=== PATIENT | female | born 1965 | race Hispanic/Latino ===

== ENCOUNTER 2018-09-10 11:56 | Emergency (ER) | payer SELFPAY ==
--- OUTSIDE RECORDS SUMMARY | 2018-09-10 12:00 | XMS REPORT | Summary of Care ---
Author Author [facility] Organization [facility] Address Unknown Phone Unavailable Encounter REMI Zayas(KENDELL) [phone] Date(s): 01/01/17 - 01/02/17 [facility] [address] [place] [address]- Discharge Diagnosis: Shoulder pain Discharge Disposition: Home or Self Care Attending Physician: Alice Abreu DO Vital Signs 1 2 3 Most recent to oldest [Reference Range]: 154.94 cm (01/01/17 11:37 PM) Height 97.7 DegF (01/02/17 4:40 AM) 98.0 DegF (01/02/17 3:20 AM) Temperature Oral [96.4-99.1 DegF] 105/53 mmHg (01/02/17 4:40 AM) 112/97 mmHg (01/02/17 3:20 AM) 145/78 mmHg *HI* (01/01/17 11:37 PM) Blood Pressure [90-140/60-90 mmHg] 16 BRMIN (01/02/17 4:40 AM) 20 BRMIN (01/02/17 3:20 AM) 20 BRMIN (01/01/17 11:37 PM) Respiratory Rate [14-20 BRMIN] 64 bpm (01/02/17 4:40 AM) 68 bpm (01/02/17 3:20 AM) 71 bpm (01/01/17 11:37 PM) Peripheral Pulse Rate [60-100 bpm] 86.364 kg (01/01/17 11:37 PM) Weight 35.98 m2 (01/01/17 11:37 PM) Body Mass Index Problem List No data available for this section Allergies, Adverse Reactions, Alerts Substance Reaction Severity Status acetaminophen-codeine Active NKA Active Medications acetaminophen-hydrocodone 325 mg-5 mg oral tablet 1 tab, Route: PO, Drug Form: TAB, Dosing Weight 86.364, kg, ONCE, STAT, Start da te: 01/02/17 2:14:00 CDT, Stop date: 01/02/17 2:14:00 CDT Start Date: 01/02/17 Stop Date: 01/02/17 Status: Completed ketOROLAC 30 mg, Route: IM, Drug form: INJ, ONCE, Dosing Weight 86.364, kg, Priority: STAT , Start date: 01/02/17 2:38:00 CDT, Stop date: 01/02/17 2:38:00 CDT Start Date: 01/02/17 Stop Date: 01/02/17 Status: Completed Motrin 600 mg oral tablet 600 mg=1 tab, PO, Q6H, take with food, X 5 day, # 20 tab, 0 Refill(s) Start Date: 01/02/17 Stop Date: 01/07/17 Status: Ordered Ultram 50 mg oral tablet 50 mg, Route: PO, Drug form: TAB, ONCE, Dosing Weight 86.364, kg, Priority: STAT , Start date: 01/02/17 2:38:00 CDT, Stop date: 01/02/17 2:38:00 CDT Start Date: 01/02/17 Stop Date: 01/02/17 Status: Completed Ultram 50 mg oral tablet 50 mg=1 tab, PO, Q6H, PRN pain, X 3 day, # 12 tab, 0 Refill(s) Start Date: 01/02/17 Stop Date: 01/05/17 Status: Ordered Valium 5 mg, Route: PO, ONCE, Dosing Weight 86.364, kg, Priority: STAT, Start date: 2:38:00 CDT, Stop date: 01/02/17 2:38:00 CDT Start Date: 01/02/17 Stop Date: 01/02/17 Status: Completed Valium 5 mg oral tablet 5 mg=1 tab, PO, Q6H, PRN Muscle Spasms, X 3 day, # 12 tab, 0 Refill(s) Start Date: 01/02/17 Stop Date: 01/05/17 Status: Ordered Results No data available for this section Immunizations No data available for this section Procedures No data available for this section Social History Social History Type Response Smoking Status Never smoker; Exposure to Tobacco Smoke None; Cigarette Smoking Last 365 Days No; Reg Smoking Cessation Counseling No Assessment and Plan No data available for this section
--- OUTSIDE RECORDS SUMMARY | 2018-09-10 12:00 | XMS REPORT | Continuity of Care Document ---
Author Author [facility] Interface Address Unknown Phone Unavailable Problems Problem Status Onset Date Classification Date Reported Comments Source HEADACHE Active 08/29/2018 [facility] APHASIA, RIGHT SIDED WEAKNESS Active 08/29/2018 [facility] Discharge Diagnosis: Shoulder pain 01/02/2017 01/05/2017 [facility] SHOULDER PAIN Active 01/01/2017 [facility] Discharge Diagnosis: Cervical paraspinal muscle spasm 10/10/2016 10/13/2016 [facility] LEFT SIDE PAIN Active 06/29/2014 [facility] APHASIA Active [facility] WEAKNESS Active [facility] Medications Medication Details Route Status Patient Instructions Ordering Provider Order Date Source Lipitor 20 mg, 2 tab, Route: PO, Drug form: TAB, Dinner, Dosing Weight 86.364, kg, Start date: 08/29/18 17:00:00 [employer], Duration: 30 day, Stop date: 09/27/18 17:00:00 CDTNotes: (Same As: Lipitor) Inactive 08/29/2018 [facility] atorvastatin 10 mg oral tablet 20 mg=2 tab, PO, Dinner, # 60 tab, 0 Refill(s), Pharmacy: [facility] [id number] Active 08/29/2018 [facility] Aspirin 325 MG Oral Tablet 325 mg=1 tab, PO, Daily, # 30 tab, 0 Refill(s), Pharmacy: [facility] [id number] Active 08/29/2018 [facility] Aspirin 325 MG Oral Tablet 325 mg, 1 tab, Route: PO, Drug form: TAB, Daily, Dosing Weight 86.364, kg, Start date: 08/29/18 10:30:00 [employer]ER TESTING [employer]PER[employer]OR, Duration: 30 day, Stop date: 09/28/18 9:00:00 CDTNotes: Take with food. 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, Duration: 30 day, Stop date: 09/27/18 21:00:00 CDTNotes: (Same as: BD Posiflush) Inactive 08/29/2018 [facility] Saline Flush 0.9% 10 ml, Route: IVP, Drug Form: INJ, Dosing Weight 81.818, kg, PRN, PRN Line Flush, Start date: 08/29/18 5:07:00 [employer]ER TESTING SUPER[employer]OR, Duration: 30 day, Stop date: 09/28/18 6:06:00 CDTNotes: (Same as: BD Posiflush) Inactive 08/29/2018 [facility] Aspirin 325 mg, Route: PO, Drug form: TAB, ONCE, Dosing Weight 81.818, kg, Priority: STAT, Start date: 08/29/18 2:34:00 PAPER TESTING SUPERVISOR, Stop date: 08/29/18 2:34:00 [employer]ER TESTING SUPER[employer]OR Inactive 08/29/2018 [facility] Saline Flush 0.9% 10 mL, Route: IVP, Drug Form: INJ, Dosing Weight 86.364, kg, PRN, PRN Line Flush, Start date: 08/29/18 1:28:00 P[employer]ER TESTING SUPERVISOR, Duration: 30 day, Stop date: 09/28/18 2:27:00 CDTNotes: (Same as: BD Posiflush) Inactive 08/29/2018 [facility] Motrin 600 mg oral tablet 600 mg=1 tab, PO, Q6H, take with food, X 5 day, # 20 tab, 0 Refill(s) Active 01/02/2017 [facility] Diazepam 5 MG Oral Tablet [Valium] 5 mg=1 tab, PO, Q6H, PRN Muscle Spasms, X 3 day, # 12 tab, 0 Refill(s) Active 01/02/2017 [facility] tramadol hydrochloride 50 MG Oral Tablet [Ultram] 50 mg=1 tab, PO, Q6H, PRN pain, X 3 day, # 12 tab, 0 Refill(s) Active 01/02/2017 [facility] Valium 5 mg, Route: PO, ONCE, Dosing Weight 86.364, kg, Priority: STAT, Start date: 01/02/17 2:38:00 CDT, Stop date: 01/02/17 2:38:00 CDT Inactive 01/02/2017 [facility] tramadol hydrochloride 50 MG Oral Tablet [Ultram] 50 mg, Route: PO, Drug form: TAB, ONCE, Dosing Weight 86.364, kg, Priority: STAT, Start date: 01/02/17 2:38:00 CDT, Stop date: 01/02/17 2:38:00 CDT Inactive 01/02/2017 [facility] Ketorolac 30 mg, Route: IM, Drug form: INJ, ONCE, Dosing Weight 86.364, kg, Priority: STAT, Start date: 01/02/17 2:38:00 CDT, Stop date: 01/02/17 2:38:00 CDT Inactive 01/02/2017 [facility] Acetaminophen 325 MG / Hydrocodone Bitartrate 5 MG Oral Tablet 1 tab, Route: PO, Drug Form: TAB, Dosing Weight 86.364, kg, ONCE, STAT, Start date: 01/02/17 2:14:00 CDT, Stop date: 01/02/17 2:14:00 CDT Inactive 01/02/2017 [facility] Ketorolac 30 mg, Route: IM, Drug form: INJ, ONCE, Dosing Weight 86.364, kg, Priority: STAT, Start date: 10/10/16 0:41:00 CDT, Stop date: 10/10/16 0:41:00 CDT Inactive 10/10/2016 [facility] Valium 5 mg, Route: IM, Drug form: INJ, ONCE, Dosing Weight 86.364, kg, Priority: STAT, Start date: 10/10/16 0:41:00 CDT, Stop date: 10/10/16 0:41:00 CDT Inactive 10/10/2016 [facility] Allergies, Adverse Reactions, Alerts Substance Category Reaction Severity Reaction type Status Date Reported Comments Source acetaminophen-codeine Assertion Drug allergy Active [facility] NKA Assertion Drug allergy Active [facility] Immunizations Immunization Date Given Site Status Last Updated Comments Source Results Order Name Results Value Reference Range Date Interpretation Comments Source ELECTROLYTES AGAP 8.0 meq/L 10.0 - 20.0 08/29/2018 [facility] ELECTROLYTES Potassium Lvl 4.0 meq/L 3.5 - 5.1 08/29/2018 [facility] ELECTROLYTES Chloride Lvl 108 meq/L 95 - 109 08/29/2018 [facility] ELECTROLYTES Creatinine Lvl 0.64 mg/dL 0.50 - 1.40 08/29/2018 [facility] ELECTROLYTES Sodium Lvl 139 meq/L 135 - 145 08/29/2018 [facility] ELECTROLYTES BUN 14 mg/dL 7 - 22 08/29/2018 [facility] ELECTROLYTES CO2 27 meq/L 24 - 32 08/29/2018 [facility] ELECTROLYTES Calcium Lvl 8.2 mg/dL 8.5 - 10.5 08/29/2018 [facility] ELECTROLYTES eGFR 101 mL/min/1.73m2 08/29/2018 Result Comment: The eGFR is calculated using the CKD-EPI formula. In most young, healthy individuals the eGFR will be >90 mL/min/1.73m2. The eGFR declines with age. An eGFR of 60-89 may be normal in some populations, particularly the elderly, for whom the CKD-EPI formula has not been extensively validated. Use of the eGFR is not recommended in the following populations: Individuals with unstable creatinine concentrations, including patients and those with serious co-morbid conditions. Patients with extremes in muscle mass or diet. The data above are obtained from the National Kidney Disease Education Program (NKDEP) which additionally recommends that when the eGFR is used in patients with extremes of body mass index for purposes of drug dosing, the eGFR should be multiplied by the estimated BMI. [facility] ELECTROLYTES Glucose Lvl 113 mg/dL 70 - 99 08/29/2018 [facility] LIPIDS CHD Risk 4.50 3.90 - 5.80 08/29/2018 [facility] LIPIDS Chol 198 mg/dL <=199 mg/dL 08/29/2018 [facility] LIPIDS HDL 44 mg/dL >=61 mg/dL 08/29/2018 [facility] LIPIDS VLDL 28 08/29/2018 [facility] LIPIDS LDL (Calculated) 126 mg/dL <=99 mg/dL 08/29/2018 [facility] LIPIDS Trig 142 mg/dL <=149 mg/dL 08/29/2018 [facility] SPECIAL CHEMISTRY Hgb A1C 6.5 % <=5.6 % 08/29/2018 [facility] CARDIAC ENZYMES Troponin-I null 0.00 - 0.40 08/29/2018 [facility] Carotid artery Doppler bilat US Carotid artery Doppler bilat US Clinical Indication: Acute Cerebral Accident - aphasia. Comparison: None. TECHNIQUE: Garcia-scale, color Doppler and spectral Doppler of the carotid arteries was performed. Any reported ICA stenoses indirectly reference the distal internal carotid diameter as the denominator for the stenosis measurement, utilizing consensus panel criteria. FINDINGS: RIGHT: No significant plaque ICA PSV 82 cm/sec CCA PSV 144 cm/sec ICA/CCA ratio 0.57 Vertebral flow is antegrade. External carotid artery is patent. LEFT: No significant plaque ICA PSV 79 cm/sec CCA PSV 106 cm/sec ICA/CCA ratio 0.75 Vertebral flow is antegrade. External carotid artery is patent. IMPRESSION: 1. No hemodynamically significant stenosis of bilateral internal carotid arteries by velocity criteria. Antegrade flow in bilateral vertebral arteries. Consensus panel Doppler US criteria for diagnosis of ICA stenosis: Stenosis (%) ICA PSV (cm/sec) ICA/CCA ratio <50 <125 <2.0 50-69 125-230 2.0-4.0 >70 but less than >230 >4.0 near occlusion Near occlusion High, low, or Variable undetectable SL: [id number] 08/29/2018 - - Read by: David Pedersen MD Dictated Date/time: 08/29/18 13:58 Electronically Signed by: David Pedersen MD 08/29/18 13:58 FINAL REPORT [facility] CARDIAC ENZYMES Troponin-I null 0.00 - 0.40 08/29/2018 [facility] CARDIAC ENZYMES Total CK 139 unit/L 12 - 191 08/29/2018 [facility] CHEM PANEL eGFR 86 mL/min/1.73m2 08/29/2018 Result Comment: The eGFR is calculated using the CKD-EPI formula. In most young, healthy individuals the eGFR will be >90 mL/min/1.73m2. The eGFR declines with age. An eGFR of 60-89 may be normal in some populations, particularly the elderly, for whom the CKD-EPI formula has not been extensively validated. Use of the eGFR is not recommended in the following populations: Individuals with unstable creatinine concentrations, including patients and those with serious co-morbid conditions. Patients with extremes in muscle mass or diet. The data above are obtained from the National Kidney Disease Education Program (NKDEP) which additionally recommends that when the eGFR is used in patients with extremes of body mass index for purposes of drug dosing, the eGFR should be multiplied by the estimated BMI. [facility] CHEM PANEL Calcium Lvl 8.8 mg/dL 8.5 - 10.5 08/29/2018 [facility] CHEM PANEL Albumin Lvl 4.0 g/dL 3.5 - 5.0 08/29/2018 [facility] CHEM PANEL Total Protein 8.1 g/dL 6.4 - 8.4 08/29/2018 [facility] CHEM PANEL CO2 30 meq/L 24 - 32 08/29/2018 [facility] CHEM PANEL Chloride Lvl 107 meq/L 95 - 109 08/29/2018 [facility] CHEM PANEL Potassium Lvl 3.4 meq/L 3.5 - 5.1 08/29/2018 [facility] CHEM PANEL Sodium Lvl 139 meq/L 135 - 145 08/29/2018 [facility] CHEM PANEL Creatinine Lvl 0.78 mg/dL 0.50 - 1.40 08/29/2018 [facility] CHEM PANEL Glucose Lvl 107 mg/dL 70 - 99 08/29/2018 [facility] CHEM PANEL BUN 17 mg/dL 7 - 22 08/29/2018 [facility] CHEM PANEL AST 19 unit/L 0 - 37 08/29/2018 [facility] CHEM PANEL ALT 37 unit/L 0 - 65 08/29/2018 [facility] CHEM PANEL Bili Total 0.2 mg/dL 0.2 - 1.3 08/29/2018 [facility] CHEM PANEL Alk Phos 64 unit/L 39 - 136 08/29/2018 [facility] CHEM PANEL B/C Ratio 22 6 - 25 08/29/2018 [facility] CHEM PANEL A/G Ratio 1.0 0.7 - 1.6 08/29/2018 [facility] CHEM PANEL Globulin 4.1 g/dL 2.7 - 4.2 08/29/2018 [facility] CHEM PANEL AGAP 5.4 meq/L 10.0 - 20.0 08/29/2018 [facility] HEMATOLOGY Monocytes 7.9 % 2.0 - 12.0 08/29/2018 [facility] HEMATOLOGY Basophils 0.6 % 0.0 - 1.0 08/29/2018 [facility] HEMATOLOGY Segs 55.5 % 45.0 - 75.0 08/29/2018 [facility] HEMATOLOGY Lymphocytes 34.0 % 20.0 - 40.0 08/29/2018 [facility] HEMATOLOGY Lymphocytes # 2.9 K/CMM 1.0 - 5.5 08/29/2018 [facility] HEMATOLOGY Neutrophils # 4.8 K/CMM 1.5 - 8.1 08/29/[address] [facility] Monocytes # 0.7 K/CMM 0.0 - 0.8 08/29/[address] [facility] Eosinophils # 0.2 K/CMM 0.0 - 0.5 08/29/[address] [facility] Eosinophils 2.0 % 0.0 - 4.0 08/29/[address] [facility] RDW 13.6 % 11.5 - 14.5 08/29/[address] [facility] Platelet 212 K/CMM 133 - 450 08/29/[address] [facility] MPV 8.5 fL 7.4 - 10.4 08/29/[address] [facility] Hgb 14.2 g/dL 12.0 - 16.0 08/29/[address] [facility] Hct 43.0 % 36.0 - 48.0 08/29/[address] [facility] MCHC 33.0 g/dL 32.0 - 36.0 08/29/[address] [facility] MCV 80.1 fL 80.0 - 98.0 08/29/[address] [facility] MCH 26.4 pg 27.0 - 31.0 08/29/[address] [facility] WBC 8.6 K/CMM 3.7 - 10.4 08/29/[address] [facility] RBC 5.37 M/CMM 4.20 - 5.40 08/29/[address] [facility] PTT 26.2 s 22.9 - 35.8 08/29/[address] [facility] PT 11.8 s 12.0 - 14.7 08/29/[address] [facility] INR 0.88 0.85 - 1.17 08/29/2018 [facility] Brain wo contrast MRI Brain wo contrast MRI Clinical Indication: - stroke , speech problems, right-sided numbness and weakness Comparison: None TECHNIQUE: MRI of the brain is performed without gadolinium contrast with axial T1, T2, FLAIR and diffusion weighted imaging along with sagittal T2, and coronal T1 weighted imaging. FINDINGS: BRAIN PARENCHYMA: There is mild age-related generalized cortical atrophy. Scattered nonspecific deep cerebral hemispheric white matter foci and mild periventricular increased T2 and FLAIR signal are seen, likely related to chronic microvascular ischemic disease. There is no mass effect or midline shift. There are no extra-axial fluid collection, or intraparenchymal hemorrhage. There is no magnetic susceptibility to suggest recent or remote intracranial hemorrhage. There is no diffusion weighted imaging or ADC map abnormality to suggest acute/subacute ischemia. CEREBELLOPONTINE REGIONS AND SKULL BASE: The cerebellopontine angles appear unremarkable. The skull base, craniocervical junction, and brainstem region are normal. The optic chiasm is normal. The sellar and pineal regions are unremarkable. VENTRICLES: No acute hydrocephalus. Basilar cisterns are patent. VESSELS: The expected intracranial flow voids are maintained. ORBITS, VISUALIZED PARANASAL SINUSES AND MASTOIDS: No acute abnormality of the visualized orbits or paranasal sinuses. The mastoid air cells are clear. IMPRESSION: 1. No magnetic resonance imaging evidence for acute intracranial process. 2. Generalized brain parenchymal atrophy with associated nonspecific periventricular white matter changes likely representing chronic microvascular ischemic disease. SL: SAYDA 08/29/2018 - - Read by: Skyler Villar MD Dictated Date/time: 08/29/18 06:20 Electronically Signed by: Skyler Villar MD 08/29/18 06:21 FINAL REPORT [facility] Brain Stroke wo contrast CT Brain Stroke wo contrast CT Clinical Indication: - right sided facial, tongue, ,arm, leg numbness. LKN [id number]. Comparison: Magnetic resonance imaging dated 04/19/2009 TECHNIQUE: CT images were obtained from the foramen magnum to the vertex without the use of intravenous contrast on a multidetector CT. CT imaging was performed with exposure control parameters to reduce radiation dose. Coronal and sagittal reconstructions were obtained. CT imaging performed at this location utilizes radiation dose optimization techniques which include one or more of the following: -Automated exposure control -Adjustment of the mA and/or kV according to patient size -Use of iterative reconstruction technique CT Radiation Dose DLP 902.22 mGy-cm FINDINGS: BRAIN PARENCHYMA: The brain parenchyma is normal with normal toney and white interfaces. The periventricular white matter appears unremarkable. No focal mass lesions on this noncontrast head CT. No mass effect, midline shift or edema. There are no intra-axial or extra-axial fluid collections, intraventricular or intraparenchymal hemorrhage. No low attenuation demarcating areas on this non- contrast CT to suggest subacute stroke. VENTRICLES: The lateral ventricles, third and fourth ventricles appear unremarkable. The basilar cisterns are normal. ORBITS, MASTOIDS AND PARANASAL SINUSES: The visualized orbits are unremarkable. The visualized paranasal sinuses are unremarkable. The mastoid air cells are clear. SKULL: There are no osseous abnormalities. If there is further concern for intracranial pathology or acute stroke, MRI of the brain may be performed for complete assessment. IMPRESSION: No acute infarct, intracranial hemorrhage or mass effect. Dr. Bai was notified at 1:48 AM on 08/29/2018 SL: [id number] 08/29/2018 - - Read by: Deana Huang MD Dictated Date/time: 08/29/18 01:44 Electronically Signed by: Deana Huang MD 08/29/18 01:51 FINAL REPORT [facility] Chest 1view DX Chest 1view DX Clinical Indication: - stroke-like symptoms. Comparison: Prior chest radiograph dated 01/02/2017. FINDINGS: The portable AP single view radiograph provided for review. The exam demonstrates limited decreased lung volumes without dense airspace consolidation, large pleural effusion or detectable pneumothorax. The heart size and pulmonary vasculature are normal. The trachea is midline. There are no clinically significant osseous abnormalities noted. Overlapping electrocardiogram leads and wires. IMPRESSION: No chest radiographic evidence of acute cardiopulmonary disease. SL: PANKAJ 08/29/2018 - - Read by: Thanh Sebastian MD Dictated Date/time: 08/29/18 02:37 Electronically Signed by: Thanh Sebastian MD 08/29/18 02:38 FINAL REPORT [facility] Shoulder series DX Shoulder series DX Clinical Indication: - Left shoulder pain Comparison: None FINDINGS: The Internal rotation, external rotation, and axillary views of the left shoulder show normal alignment at the glenohumeral joint. There are no fractures or dislocations. The acromioclavicular joint and coracoclavicular spaces are intact. The acromion and coracoid processes appear unremarkable. The subacromial space is unremarkable. The visualized scapula and clavicle are unremarkable. There are no radiopaque foreign bodies or soft tissue swelling. If there is further concern, followup radiographs or MRI of the shoulder may be performed for complete assessment. IMPRESSION: No fracture or dislocation is seen in the left shoulder. SL: 82 01/02/2017 - - Read by: Saad Covarrubias MD Dictated Date/time: 01/02/17 02:56 Electronically Signed by: Saad Covarrubias MD 01/02/17 02:57 FINAL REPORT [facility] Chest 1view DX Chest 1view DX Clinical Indication: - Left upper chest pain Comparison: April 19, 2009 FINDINGS: The frontal chest radiograph shows normal lung volumes without interstitial or airspace opacities, pleural effusions or pneumothorax. The cardiomediastinal contours are normal for the age of the patient with aortic tortuosity. There are degenerative changes in the spine. IMPRESSION: No chest radiographic evidence of acute cardiopulmonary disease. SL: 82 01/02/2017 - - Read by: Saad Covarrubias MD Dictated Date/time: 01/02/17 02:57 Electronically Signed by: Saad Covarrubias MD 01/02/17 02:58 FINAL REPORT [facility] Spine cervical 2 or 3 view DX Spine cervical 2 or 3 view DX Clinical Indication: Pain Post Trauma - right side neck pain Comparison: January 24, 2008 FINDINGS: The AP, lateral, and odontoid of the cervical spine show straightening of the cervical lordosis but otherwise normal alignment of the cervical spine. There are no fractures or subluxations. The prevertebral soft tissues and atlanto- dental interspace are normal. The facet joint, spinolaminar line and spinous process alignment is normal. The vertebral body heights and disk spaces are unremarkable. If there is further concern or neurological abnormalities on clinical exam, recommend further radiographic views, MRI or CT of the cervical spine for complete assessment. IMPRESSION: Reversal of normal cervical lordosis likely from muscle spasm without acute osseous abnormality within the cervical spine. SL: 82 10/10/2016 - - Read by: Saad Covarrubias MD Dictated Date/time: 10/10/16 01:27 Electronically Signed by: Saad Covarrubias MD 10/10/16 01:31 FINAL REPORT [facility] Vital Signs Vital Sign Value Date Comments Source Heart Rate 70 08/29/2018 [facility] Temperature Oral (F) 98.1 F 08/29/2018 [facility] Systolic (mm Hg) 112 08/29/2018 [facility] Diastolic (mm Hg) 71 08/29/2018 [facility] Weight 86.364 08/29/2018 [facility] BMI Calculated 34.82 08/29/2018 [facility] Height 157.48 cm 08/29/2018 [facility] Systolic (mm Hg) 118 08/29/2018 [facility] Diastolic (mm Hg) 73 08/29/2018 [facility] Temperature Oral (F) 98.0 F 08/29/2018 [facility] Heart Rate 64 08/29/2018 [facility] Heart Rate 60 08/29/2018 [facility] Temperature Oral (F) 98.2 F 08/29/2018 [facility] Respitory Rate 16 08/29/2018 [facility] Systolic (mm Hg) 118 08/29/2018 [facility] Diastolic (mm Hg) 72 08/29/2018 [facility] Respitory Rate 15 08/29/2018 [facility] Respitory Rate 18 08/29/2018 [facility] BMI Calculated 32.99 08/29/2018 [facility] Weight 81.818 08/29/2018 [facility] Height 157.48 cm 08/29/2018 [facility] Respitory Rate 16 01/02/2017 [facility] Heart Rate 64 01/02/2017 [facility] Systolic (mm Hg) 105 01/02/2017 [facility] Diastolic (mm Hg) 53 01/02/2017 [facility] Temperature Oral (F) 97.7 F 01/02/2017 [facility] Respitory Rate 20 01/02/2017 [facility] Heart Rate 68 01/02/2017 [facility] Systolic (mm Hg) 112 01/02/2017 [facility] Diastolic (mm Hg) 97 01/02/2017 [facility] Temperature Oral (F) 98.0 F 01/02/2017 [facility] BMI Calculated 35.98 01/02/2017 [facility] Weight 86.364 01/02/2017 [facility] Respitory Rate 20 01/02/2017 [facility] Heart Rate 71 01/02/2017 [facility] Systolic (mm Hg) 145 01/02/2017 [facility] Diastolic (mm Hg) 78 01/02/2017 [facility] Height 154.94 cm 01/02/2017 [facility] Temperature Oral (F) 98.4 F 10/10/2016 [facility] Systolic (mm Hg) 148 10/10/2016 [facility] Diastolic (mm Hg) 74 10/10/2016 [facility] Heart Rate 66 10/10/2016 [facility] Respitory Rate 18 10/10/2016 [facility] Respitory Rate 18 10/10/2016 [facility] Systolic (mm Hg) 151 10/10/2016 [facility] Diastolic (mm Hg) 67 10/10/2016 [facility] Heart Rate 64 10/10/2016 [facility] Temperature Oral (F) 98.7 F 10/10/2016 [facility] Weight 86.364 10/10/2016 [facility] Height 154.94 cm 10/10/2016 [facility] BMI Calculated 35.98 10/10/2016 [facility] Respitory Rate 18 10/10/2016 [facility] Heart Rate 68 10/10/2016 [facility] Temperature Oral (F) 98.7 F 10/10/2016 [facility] Systolic (mm Hg) 162 10/10/2016 [facility] Diastolic (mm Hg) 73 10/10/2016 [facility] Encounters Location Location Details Encounter Type Encounter Number Reason For Visit Attending Provider ADM Date DC Date Status Source [facility] [id number] Cat Cabrera 10/10/2016 10/10/2016 [facility] Emergency [id number] Alice Jeffersooqi 01/02/2017 01/02/2017 [facility] Observation [id number] George Hayward 08/29/2018 08/29/2018 [facility] Procedures Procedure Code Date Perfomer Comments Source
--- OUTSIDE RECORDS SUMMARY | 2018-09-10 12:00 | XMS REPORT | Summary of Care ---
Author Author [facility] Organization [facility] Address Unknown Phone Unavailable Encounter [facility] Marquez(KENDELL) [phone] Date(s): 08/29/18 - 08/29/18 [facility] [address] [place] [address]- [phone] Discharge Disposition: Home or Self Care Attending Physician: George Hayward DO Admitting Physician: George Hayward DO Vital Signs 1 2 3 Most recent to oldest [Reference Range]: 157.48 cm (08/29/18 8:09 AM) 157.48 cm (08/29/18 1:26 AM) Height 98.1 DegF (08/29/18 11:30 AM) 98.0 DegF (08/29/18 7:59 AM) 98.2 DegF (08/29/18 5:45 AM) Temperature Oral [96.4-99.1 DegF] 112/71 mmHg (08/29/18 11:30 AM) 118/73 mmHg (08/29/18 7:59 AM) 118/72 mmHg (08/29/18 5:45 AM) Blood Pressure [90-140/60-90 mmHg] 16 BRMIN (08/29/18 5:45 AM) 15 BRMIN (08/29/18 4:04 AM) 18 BRMIN (08/29/18 3:55 AM) Respiratory Rate [14-20 BRMIN] 70 bpm (08/29/18 11:30 AM) 64 bpm (08/29/18 7:59 AM) 60 bpm (08/29/18 5:45 AM) Peripheral Pulse Rate [60-100 bpm] 86.364 kg (08/29/18 8:09 AM) 81.818 kg (08/29/18 1:26 AM) Weight 34.82 m2 (08/29/18 8:09 AM) 32.99 m2 (08/29/18 1:26 AM) Body Mass Index Problem List No data available for this section Allergies, Adverse Reactions, Alerts Substance Reaction Severity Status NKA Active acetaminophen-codeine Active Medications aspirin 325 mg, Route: PO, Drug form: TAB, ONCE, Dosing Weight 81.818, kg, Priority: STA T, Start date: 08/29/18 2:34:00 TRAFFIC SUPERINTENDENT, Stop date: 08/29/18 2:34:00 TRAFFIC SUPERINTENDENT Start Date: 08/29/18 Stop Date: 08/29/18 Status: Completed aspirin 325 mg tablet 325 mg=1 tab, PO, Daily, # 30 tab, 0 Refill(s), Pharmacy: [id number] Start Date: 08/29/18 Stop Date: 09/28/18 Status: Ordered aspirin 325 mg tablet 325 mg, 1 tab, Route: PO, Drug form: TAB, Daily, Dosing Weight 86.364, kg, Start date: 08/29/18 10:30:00 TRAFFIC SUPERINTENDENT, Duration: 30 day, Stop date: 09/28/18 9:00:00 CDT Notes: Take with food. Start Date: 08/29/18 Stop Date: 08/29/18 Status: Discontinued atorvastatin 10 mg oral tablet 20 mg=2 tab, PO, Dinner, # 60 tab, 0 Refill(s), Pharmacy: [id number] Start Date: 08/29/18 Stop Date: 09/28/18 Status: Ordered Lipitor 20 mg, 2 tab, Route: PO, Drug form: TAB, Dinner, Dosing Weight 86.364, kg, Start date: 08/29/18 17:00:00 TRAFFIC SUPERINTENDENT, Duration: 30 day, Stop date: 09/27/18 17:00:00 CDT Notes: (Same As: Lipitor) Start Date: 08/29/18 Stop Date: 08/29/18 Status: Canceled Saline Flush 0.9% 10 mL, Route: IVP, Drug Form: INJ, Dosing Weight 86.364, kg, PRN, PRN Line Flush , Start date: 08/29/18 1:28:00 TRAFFIC SUPERINTENDENT, Duration: 30 day, Stop date: 09/28/18 2:27:0 0 CDT Notes: (Same as: BD Posiflush) Start Date: 08/29/18 Stop Date: 08/29/18 Status: Discontinued Saline Flush 0.9% 10 ml, Route: IVP, Drug Form: INJ, Dosing Weight 81.818, kg, PRN, PRN Line Flush , Start date: 08/29/18 5:07:00 TRAFFIC SUPERINTENDENT, Duration: 30 day, Stop date: 09/28/18 6:06:0 0 CDT Notes: (Same as: BD Posiflush) Start Date: 08/29/18 Stop Date: 08/29/18 Status: Discontinued Saline Flush 0.9% 10 ml, Route: IVP, Drug Form: INJ, Dosing Weight 81.818, kg, Q12H, Start date: 0 08/29/18 9:00:00 TRAFFIC SUPERINTENDENT, Duration: 30 day, Stop date: 09/27/18 21:00:00 CDT Notes: (Same as: BD Posiflush) Start Date: 08/29/18 Stop Date: 08/29/18 Status: Discontinued Results ELECTROLYTES Most recent to 1 2 oldest [Reference Range]: Sodium Lvl [135-145 139 mEq/L 139 mEq/L mEq/L] (08/29/18 8:13 AM) (08/29/18 1:58 AM) Potassium Lvl 4.0 mEq/L 3.4 mEq/L [3.5-5.1 mEq/L] (08/29/18 8:13 AM) *LOW* (08/29/18 1:58 AM) Chloride Lvl [95-109 108 mEq/L 107 mEq/L mEq/L] (08/29/18 8:13 AM) (08/29/18 1:58 AM) CO2 [24-32 mEq/L] 27 mEq/L 30 mEq/L (08/29/18 8:13 AM) (08/29/18 1:58 AM) AGAP [10.0-20.0 8.0 mEq/L 5.4 mEq/L mEq/L] *LOW* *LOW* (08/29/18 8:13 AM) (08/29/18 1:58 AM) CHEM PANEL Most recent to 1 2 oldest [Reference Range]: Creatinine Lvl 0.64 mg/dL 0.78 mg/dL [0.50-1.40 mg/dL] (08/29/18 8:13 AM) (08/29/18 1:58 AM) eGFR 101 mL/min/1.73m2 1 86 mL/min/1.73m2 2 *NA* *NA* (08/29/18 8:13 AM) (08/29/18 1:58 AM) BUN [7-22 mg/dL] 14 mg/dL 17 mg/dL (08/29/18 8:13 AM) (08/29/18 1:58 AM) B/C Ratio [6-25] 22 (08/29/18 1:58 AM) Glucose Lvl [70-99 113 mg/dL 107 mg/dL mg/dL] *HI* *HI* (08/29/18 8:13 AM) (08/29/18 1:58 AM) Total Protein 8.1 g/dL [6.4-8.4 g/dL] (08/29/18 1:58 AM) Albumin Lvl [3.5-5.0 4.0 g/dL g/dL] (08/29/18 1:58 AM) Globulin [2.7-4.2 4.1 g/dL g/dL] (08/29/18 1:58 AM) A/G Ratio [0.7-1.6] 1.0 (08/29/18 1:58 AM) Calcium Lvl 8.2 mg/dL 8.8 mg/dL [8.5-10.5 mg/dL] *LOW* (08/29/18 1:58 AM) (08/29/18 8:13 AM) ALT [0-65 unit/L] 37 unit/L (08/29/18 1:58 AM) AST [0-37 unit/L] 19 unit/L (08/29/18 1:58 AM) Alk Phos [39-136 64 unit/L unit/L] (08/29/18 1:58 AM) Bili Total [0.2-1.3 0.2 mg/dL mg/dL] (08/29/18 1:58 AM) 1Result Comment: The eGFR is calculated using the [...] from the National Kid[employer] Disease Education Program ( NKDEP) which additionally recommends that when the eGFR is used in patients with extremes of body mass index for purposes of drug dosing, the eGFR should be mul tiplied by the estimated BMI. 2Result Comment: The eGFR is calculated using the [...] from the National Kid[employer] Disease Education Program ( NKDEP) which additionally recommends that when the eGFR is used in patients with extremes of body mass index for purposes of drug dosing, the eGFR should be mul tiplied by the estimated BMI. CARDIAC ENZYMES Most recent to [Reference Range]: Total CK [12-191 139 unit/L unit/L] (08/29/18 1:58 AM) Troponin-I <0.02 ng/mL <0.02 ng/mL [0.00-0.40 ng/mL] (08/29/18 8:12 AM) (08/29/18 1:58 AM) LIPIDS Most recent to 1 oldest [Reference Range]: CHD Risk [3.90-5.80] 4.50 (08/29/18 8:13 AM) Chol [<=199 mg/dL] 198 mg/dL (08/29/18 8:13 AM) Trig [<=149 mg/dL] 142 mg/dL (08/29/18 8:13 AM) HDL [>=61 mg/dL] 44 mg/dL *LOW* (08/29/18 8:13 AM) LDL (Calculated) 126 mg/dL [<=99 mg/dL] *HI* (08/29/18 8:13 AM) VLDL 28 *NA* (08/29/18 8:13 AM) SPECIAL CHEMISTRY Most recent to 1 2 oldest [Reference Range]: Hgb A1C [<=5.6 %] 6.5 % *HI* (08/29/18 8:13 AM) HEMATOLOGY Most recent to 1 2 oldest [Reference Range]: WBC [3.7-10.4 K/CMM] 8.6 K/CMM (08/29/18 1:58 AM) RBC [4.20-5.40 5.37 M/CMM M/CMM] (08/29/18 1:58 AM) Hgb [12.0-16.0 g/dL] 14.2 g/dL (08/29/18 1:58 AM) Hct [36.0-48.0 %] 43.0 % (08/29/18 1:58 AM) MCV [80.0-98.0 fL] 80.1 fL (08/29/18 1:58 AM) MCH [27.0-31.0 pg] 26.4 pg *LOW* (08/29/18 1:58 AM) MCHC [32.0-36.0 33.0 g/dL g/dL] (08/29/18 1:58 AM) RDW [11.5-14.5 %] 13.6 % (08/29/18 1:58 AM) MPV [7.4-10.4 fL] 8.5 fL (08/29/18 1:58 AM) Platelet [133-450 212 K/CMM K/CMM] (08/29/18 1:58 AM) Segs [45.0-75.0 %] 55.5 % (08/29/18 1:58 AM) Lymphocytes 34.0 % [20.0-40.0 %] (08/29/18 1:58 AM) Monocytes [2.0-12.0 7.9 % %] (08/29/18 1:58 AM) Eosinophils [0.0-4.0 2.0 % %] (08/29/18 1:58 AM) Basophils [0.0-1.0 0.6 % %] (08/29/18 1:58 AM) Neutrophils # 4.8 K/CMM [1.5-8.1 K/CMM] (08/29/18 1:58 AM) Lymphocytes # 2.9 K/CMM [1.0-5.5 K/CMM] (08/29/18 1:58 AM) Monocytes # [0.0-0.8 0.7 K/CMM K/CMM] (08/29/18 1:58 AM) Eosinophils # 0.2 K/CMM [0.0-0.5 K/CMM] (08/29/18 1:58 AM) PT [12.0-14.7 11.8 seconds seconds] *LOW* (08/29/18 1:58 AM) INR [0.85-1.17] 0.88 (08/29/18 1:58 AM) PTT [22.9-35.8 26.2 seconds seconds] (08/29/18 1:58 AM) Immunizations No data available for this section Procedures No data available for this section Social History Social History Type Response Smoking Status Never smoker; Exposure to Tobacco Smoke None; Cigarette Smoking Last 365 Days No; Reg Smoking Cessation Counseling No entered on: 08/29/18 Assessment and Plan No data available for this section
--- OUTSIDE RECORDS SUMMARY | 2018-09-10 12:00 | XMS REPORT | Summary of Care ---
Author Author [facility] Organization [facility] Address Unknown Phone Unavailable Encounter REMI Zayas(KENDELL) [id number] Date(s): 10/09/16 - 10/10/16 [facility] [address] [place] [address]- [phone] Discharge Diagnosis: Cervical paraspinal muscle spasm Discharge Disposition: Home or Self Care Attending Physician: Lida Cabrera DO Vital Signs 1 2 3 Most recent to oldest [Reference Range]: 154.94 cm (10/09/16 11:59 PM) Height 98.4 DegF (10/10/16 2:04 AM) 98.7 DegF (10/10/16 12:27 AM) 98.7 DegF (10/09/16 11:59 PM) Temperature Oral [96.4-99.1 DegF] 148/74 mmHg *HI* (10/10/16 2:04 AM) 151/67 mmHg *HI* (10/10/16 12:27 AM) 162/73 mmHg *HI* (10/09/16 11:59 PM) Blood Pressure [90-140/60-90 mmHg] 18 BRMIN (10/10/16 2:04 AM) 18 BRMIN (10/10/16 12:27 AM) 18 BRMIN (10/09/16 11:59 PM) Respiratory Rate [14-20 BRMIN] 66 bpm (10/10/16 2:04 AM) 64 bpm (10/10/16 12:27 AM) 68 bpm (10/09/16 11:59 PM) Peripheral Pulse Rate [60-100 bpm] 86.364 kg (10/09/16 11:59 PM) Weight 35.98 m2 (10/09/16 11:59 PM) Body Mass Index Problem List No data available for this section Allergies, Adverse Reactions, Alerts Substance Reaction Severity Status NKA Active Medications ketOROLAC 30 mg, Route: IM, Drug form: INJ, ONCE, Dosing Weight 86.364, kg, Priority: STAT , Start date: 10/10/16 0:41:00 CDT, Stop date: 10/10/16 0:41:00 CDT Start Date: 10/10/16 Stop Date: 10/10/16 Status: Completed Valium 5 mg, Route: IM, Drug form: INJ, ONCE, Dosing Weight 86.364, kg, Priority: STAT, Start date: 10/10/16 0:41:00 CDT, Stop date: 10/10/16 0:41:00 CDT Start Date: 10/10/16 Stop Date: 10/10/16 Status: Completed Results No data available for this section Immunizations No data available for this section Procedures No data available for this section Social History Social History Type Response Smoking Status Former smoker; Exposure to Tobacco Smoke None; Cigarette Smoking Last 365 Days No; Reg Smoking Cessation Counseling No Assessment and Plan No data available for this section
== END 2018-09-10 12:20 | disposition left against medical advice (07) ==
LOC: ER 11:56
DX: R69 Illness, unspecified (principal)